=== PATIENT | female | born 1935 | race Hispanic/Latino ===

== ENCOUNTER → 2017-10-14 | Outpatient (CLI) | payer OTHER ==
[~2017-10-14] MED LIST: ACET-2247 PO; ALEN70TA47 PO; ASPI-1005 PO; CARB-38 PO; CLOP75TA32 PO; ENAL10TA PO; ENAL20TA PO; FURO20TA6 PO; GLIP1TAB6 PO; METO25 PO; NITR100C4 PO; OXYB5TAB PO; SIMV20TA6 PO
== END | disposition home or self-care (01) ==
LOC: SHCH 08:51
PROVIDERS: ATTEND Internal Medicine Cardiovascular Disease
DX: I08.0 Rheumatic disorders of both mitral and aortic valves (principal)
CPT/HCPCS: 93306

== ENCOUNTER 2017-11-03 05:37 | Inpatient (IN) | payer OTHER ==
[2017-10-30 09:52] VITALS: BP 137/62
[2017-10-30 10:00] LABS: BASOPHILS % (AUTO) 0.6 % (0.0-5.0); EOSINOPHILS % (AUTO) 2.2 % (0.0-8.0); HEMATOCRIT 33.2 % (36-48); LYMPHOCYTES % (AUTO) 30.7 % (21.0-51.0); MEAN CORPUSCULAR VOLUME 91.6 fL (79-99); MONOCYTES % (AUTO) 6.6 % (3.0-13.0); NEUTROPHILS % (AUTO) 59.9 % (40.0-77.0); PLATELET COUNT (AUTO) 235 K/uL (130-400); RED BLOOD CELL COUNT(AUTO) 3.62 MIL/uL (4.00-5.50); RED CELL DISTRIBUTION WIDTH 13.4 % (11.0-15.5); WHITE BLOOD COUNT (AUTO) 5.8 K/uL (4.8-10.8)
[2017-10-30 10:06] LABS: CREATININE 0.6 mg/dL (0.5-1.5); POTASSIUM 4.4 mmol/L (3.5-5.1)
[2017-10-30 10:20] LABS: PARTIAL THROMBOPLASTIN TIME 26.1 SEC (26.3-35.5); PROTHROMBIN TIME 10.5 SEC (9.6-11.6)
[2017-10-30 10:48] LABS: APPEARANCE,URINE Clear (CLEAR); BILIRUBIN,URINE Negative (NEGATIVE); COLOR,URINE Yellow (YELLOW); GLUCOSE, URINE (UA) Negative (NEGATIVE); KETONES,URINE Negative (NEGATIVE); LEUKOCYTE ESTERASE ,URINE Trace (NEGATIVE); NITRATE,URINE Negative (NEGATIVE); OCCULT BLOOD,URINE Negative (NEGATIVE); PH,URINE 7.5 (5.0-8.0); PROTEIN,URINE Negative (NEGATIVE); UROBILINOGEN,URINE 0.2 mg/dL (0.2-1.0)
[2017-10-30 11:11] LABS: BACTERIA,URINE Rare /HPF (None Seen); RBC,URINE 0-1 /HPF (0-1); SQUAMOUS EPITHELIAL CELL,UR 0-2 /LPF (0-2); WBC,URINE 0-1 /HPF (0-1)
[~2017-11-03] VITALS: Ht 154.9 cm; Wt 56.7 kg
[2017-11-03] VITALS (15 sets, daily range): BP systolic 133–165; BP diastolic 45–84
[~2017-11-03 05:37] MED LIST changes: -ACET-2247 PO; -ASPI-1005 PO; -ENAL10TA PO; -FURO20TA6 PO; -METO25 PO; -NITR100C4 PO
[2017-11-03] MEDS ORDERED: ISOVUE-370 50ML VIAL IV ONE (07:09)
[2017-11-03] MEDS ORDERED: NITROGLYCERIN 5 MG/ML 10 ML VIAL IV ONE (07:09)
[2017-11-03] MEDS ORDERED: IOPAMIDOL-370 100 ML VIAL IV ONE (07:09)
[2017-11-03] MEDS ORDERED: LIDOCAINE HCL 2% 20ML ONE (07:09)
[2017-11-03] MEDS ORDERED: DEXTROSE 50%-WATER 50 ML DISP.SYRIN IV PRN (09:00)
[2017-11-03] MEDS ORDERED: GLUCAGON 1MG KIT 1 MG ML IM PRN (09:00)
[2017-11-03] MEDS: INSULIN HUMULIN R 100 UNIT/ML 3ML SQ SCH ×3 (11:30→21:00)
[2017-11-03] MEDS ORDERED: MANNITOL 25% 50ML VIAL IV ONE (12:00)
[2017-11-03] MEDS ORDERED: HEPARIN SODIUM 1000UNIT/ML 10ML VIAL IV ONE (12:00)
[2017-11-03] MEDS ORDERED: CALCIUM CHLORIDE 100 MG/ML 10 ML SYG IVP ONE (12:00)
[2017-11-03] MEDS ORDERED: ALBUMIN (HUMAN) 25% 50 ML IV ONE (12:00)
[2017-11-03] MEDS ORDERED: AMINOCAPROIC ACID 250 MG/ML 20 ML VIAL IV ONE (12:00)
[2017-11-03] MEDS ORDERED: SODIUM BICARB 8.4% 50ML SYRINGE IVP ONE (12:00)
[2017-11-03 13:27] LABS: HEMATOCRIT 34.7 % (36-48); MEAN CORPUSCULAR HEMOGLOBIN 31.9 pg (27.0-33.0); MEAN CORPUSCULAR HGB CONC 35.1 g/dL (32.0-36.0); MEAN CORPUSCULAR VOLUME 90.8 fL (79-99); PLATELET COUNT (AUTO) 230 K/uL (130-400); RED BLOOD CELL COUNT(AUTO) 3.83 MIL/uL (4.00-5.50); RED CELL DISTRIBUTION WIDTH 13.2 % (11.0-15.5); WHITE BLOOD COUNT (AUTO) 7.3 K/uL (4.8-10.8)
[2017-11-03 13:36] LABS: HEMOGLOBIN A1C 5.8 % (4.0-6.0)
[2017-11-03] MEDS ORDERED: SODIUM CHLORIDE 0.9% 1000ML 1,000 ML IV ONE (13:37)
[2017-11-03 13:42] LABS: ALBUMIN 3.9 g/dL (3.5-5.0); BILIRUBIN,TOTAL 0.6 mg/dL (0.2-1.0); CREATININE 0.6 mg/dL (0.5-1.5); POTASSIUM 3.8 mmol/L (3.5-5.1); TOTAL PROTEIN, SERUM 7.4 g/dL (6.0-8.3)
[2017-11-03 13:47] LABS: PARTIAL THROMBOPLASTIN TIME 26.6 SEC (26.3-35.5); PROTHROMBIN TIME 10.5 SEC (9.6-11.6)
[2017-11-03] MEDS ORDERED: LIDOCAINE HCL-MPF 1% 2ML VIAL IVP PRN (21:45)
[2017-11-03] MEDS ORDERED: POTASSIUM CHLORIDE 20 MEQ ERTAB PO PRN (21:45)
[2017-11-03] MEDS ORDERED: POTASSIUM CHLORIDE 20MEQ/100ML 100 ML IV PRN (21:45)
[2017-11-03] MEDS ORDERED: POTASSIUM CHLORIDE 10% ELIXIR 20 MEQ/15 ML UDCUP PO PRN (21:45)
[2017-11-04 03:38] VITALS: BP_SYST 133; BP_SYST 140; BP_DIAS 47; BP_DIAS 72
[2017-11-04 04:26] LABS: HEMATOCRIT 33.4 % (36-48); MEAN CORPUSCULAR VOLUME 91.3 fL (79-99); PLATELET COUNT (AUTO) 216 K/uL (130-400); RED BLOOD CELL COUNT(AUTO) 3.66 MIL/uL (4.00-5.50); RED CELL DISTRIBUTION WIDTH 13.4 % (11.0-15.5); WHITE BLOOD COUNT (AUTO) 5.8 K/uL (4.8-10.8)
[2017-11-04 04:34] LABS: CREATININE 0.6 mg/dL (0.5-1.5); POTASSIUM 3.8 mmol/L (3.5-5.1)
[2017-11-04] MEDS ORDERED: CEFUROXIME SODIUM 1.5 GM VIAL IVP SCH (06:00)
[2017-11-04] MEDS ORDERED: CEFUROXIME 1.5GM+NS 100ML 100 ML IV SCH (06:00)
[2017-11-04] MEDS: INSULIN HUMULIN R 100 UNIT/ML 3ML SQ SCH ×4 (06:21→20:57)
[2017-11-04 07:33] VITALS: BP 145/59
[2017-11-04 11:13] VITALS: BP 146/58
[2017-11-04] MEDS ORDERED: ENALAPRIL MALEATE 10 MG TABLET PO SCH ×2 (12:00→21:00)
[2017-11-04] MEDS ORDERED: OXYBUTYNIN CHLORIDE 5 MG TABLET PO SCH (12:00)
[2017-11-04] MEDS: CARBIDOPA-LEVODOPA 25-100 TAB PO SCH ×2 (12:35→20:56)
[2017-11-04 16:10] VITALS: BP 164/69
[2017-11-04 17:06] VITALS: BP 159/67
[2017-11-04 19:58] VITALS: BP 141/54
[2017-11-04] MEDS ORDERED: ATORVASTATIN CALCIUM 10 MG TABLET PO SCH (21:00)
[2017-11-05] VITALS (43 sets, daily range): BP systolic 83–174; BP diastolic 31–70
[2017-11-05] MEDS: INSULIN HUMULIN R 100 UNIT/ML 3ML SQ SCH (05:58)
[2017-11-05] MEDS ORDERED: CEFUROXIME 1.5GM+NS 100ML 100 ML IV ONE (06:00)
[2017-11-05] MEDS ORDERED: WATER FOR INJECTION,STERILE 20 ML VIAL IJ SCH (06:00)
[2017-11-05] MEDS: CARBIDOPA-LEVODOPA 25-100 TAB PO SCH (08:00)
[2017-11-05] MEDS ORDERED: ENALAPRIL MALEATE 10 MG TABLET PO SCH (09:00)
[2017-11-05] MEDS ORDERED: OXYBUTYNIN 5 MG TAB.SR.24H PO SCH (09:00)
[2017-11-05] MEDS ORDERED: NITROGLYCERIN 50 MG/D5% WATER 1 BOT ONE (10:50)
[2017-11-05] MEDS ORDERED: AMINOCAPROIC ACID 250 MG/ML 20 ML VIAL IV ONE ×2 (10:50→11:43)
[2017-11-05] MEDS ORDERED: SODIUM CHLORIDE 0.9% 1000ML 1,000 ML IV ONE (10:58)
[2017-11-05] MEDS: CEFUROXIME SODIUM 1.5 GM VIAL IVP SCH ×3 (11:00→22:08)
[2017-11-05] MEDS ORDERED: DELNIDO FORMULA 2 BAG IV ONE (11:40)
[2017-11-05] MEDS ORDERED: MILRINONE-D5W 20 MG/100 ML 100 ML IV ONE (11:43)
[2017-11-05] MEDS ORDERED: EPINEPHRINE 1 MG/ML AMPULE ONE (11:43)
[2017-11-05] MEDS ORDERED: PROPOFOL 10 MG/ML 20ML VIAL IV ONE (11:43)
[2017-11-05] MEDS ORDERED: ESMOLOL HCL 10 MG/ML 10 ML VIAL ONE ×2 (11:43→14:36)
[2017-11-05] MEDS ORDERED: GLYCOPYRROLATE 0.2 MG/ML 5 ML VIAL ONE (11:43)
[2017-11-05] MEDS ORDERED: LIDOCAINE PF 2% 5ML ABBOJECT ONE (11:43)
[2017-11-05] MEDS ORDERED: AMIODARONE HCL 900MG/18ML IV ONE (11:43)
[2017-11-05] MEDS ORDERED: HEPARIN SODIUM 1000UNIT/ML 10ML VIAL ONE (11:43)
[2017-11-05] MEDS ORDERED: NOREPINEPHRINE BITARTRATE 1 MG/1 ML ML IV ONE ×2 (11:43→11:53)
[2017-11-05] MEDS ORDERED: KETAMINE 50MG/ML SYRINGE 50 MG/ML DISP.SYRIN IV ONE (11:43)
[2017-11-05] MEDS ORDERED: ROCURONIUM BROMIDE 10MG/1ML 5ML VL ONE ×3 (11:43→14:36)
[2017-11-05] MEDS ORDERED: PROTAMINE SULFATE 10 MG/ML 25ML VIAL IV ONE ×2 (11:43→14:36)
[2017-11-05] MEDS ORDERED: MIDAZOLAM HCL 1 MG/ML 5ML VIAL ONE (11:43)
[2017-11-05] MEDS ORDERED: FENTANYL CITRATE PF 50 MCG/1 ML 20ML VIAL IJ ONE (11:47)
[2017-11-05] MEDS ORDERED: METHYLPREDNISOLONE SOD SUCC 1,000 MG/8 ML ML IV ONE ×2 (11:52→13:42)
[2017-11-05] MEDS ORDERED: THROMBIN-JMI 5000 UNIT/VIAL TP ONE (12:05)
[2017-11-05 12:33] LABS: ABG BASE EXCESS -2.9 mmol/L (-2.0-3.0); ABG HCO3 21.1 mmol/L (21.0-28.0); ABG OXYGEN SATURATION 99.6 % (95.0-99.0); ABG PCO2 34 mmHg (32-45)
[2017-11-05] MEDS ORDERED: OCTYL 2-CYANOACRYLATE 1 EACH TP ONE (12:56)
[2017-11-05] MEDS ORDERED: BACITRACIN 50,000 UNIT VIAL ONE (12:56)
[2017-11-05] MEDS: AMBU PUMP 1 EACH EACH MISC SCH ×2 (13:30→15:13)
[2017-11-05 13:35] LABS: ABG BASE EXCESS -6.2 mmol/L (-2.0-3.0); ABG HCO3 18.5 mmol/L (21.0-28.0); ABG PCO2 34 mmHg (32-45)
[2017-11-05] MEDS ORDERED: SODIUM CHLORIDE 0.9% 500ML 500 ML IV SCH (13:58)
[2017-11-05] MEDS ORDERED: CALCIUM GLUCONATE 1 GM in SODIUM CHLORIDE 0.9% 50 ML IV PRN (14:00)
[2017-11-05] MEDS ORDERED: SODIUM CHLORIDE 0.9% 1000ML 1,000 ML IV SCH (14:00)
[2017-11-05] MEDS ORDERED: HYDROCODONE/ACETAMINOPHEN 5/325 MG TAB PO PRN ×2 (14:00)
[2017-11-05] MEDS ORDERED: AMINOCAPROIC ACID 15,000 MG in SODIUM CHLORIDE 0.9% 250 ML IV SCH (14:00)
[2017-11-05] MEDS ORDERED: ACETAMINOPHEN 650 MG SUPPOSITORY RC PRN (14:00)
[2017-11-05] MEDS ORDERED: ALBUMIN (HUMAN) 5% 250 ML IV PRN (14:00)
[2017-11-05] MEDS ORDERED: GLUCAGON 1MG KIT 1 MG ML IM PRN (14:00)
[2017-11-05] MEDS ORDERED: ROPIVACAINE 0.2% 2MG/ML 100ML VIAL IJ ONE (14:00)
[2017-11-05] MEDS ORDERED: MORPHINE SULFATE 4 MG/1ML SYG IV PRN (14:00)
[2017-11-05] MEDS ORDERED: SODIUM BICARB 8.4% 50ML SYRINGE IV PRN (14:00)
[2017-11-05] MEDS ORDERED: POTASSIUM PHOS 15 mMOL+NS250ML 250 ML IV PRN (14:00)
[2017-11-05] MEDS ORDERED: DEXTROSE 50%-WATER 50 ML DISP.SYRIN IV PRN (14:00)
[2017-11-05] MEDS ORDERED: SODIUM CHLORIDE 0.9% 250 ML IV PRN (14:00)
[2017-11-05] MEDS ORDERED: SODIUM CHLORIDE 0.9% 10 ML VIAL IVP PRN (14:00)
[2017-11-05] MEDS ORDERED: MORPHINE SULFATE 2 MG/ML 1ML SYG IV PRN (14:00)
[2017-11-05] MEDS ORDERED: NOREPINEPHRINE 4MG/NS 250ML 250 ML IV PRN (14:00)
[2017-11-05] MEDS ORDERED: NICARDIPINE HCL 100 MG in SODIUM CHLORIDE 0.9% 100 ML IV PRN (14:00)
[2017-11-05] MEDS ORDERED: ONDANSETRON HCL 4 MG/2 ML VIAL IV PRN (14:00)
[2017-11-05] MEDS ORDERED: INSULIN REGULAR, HUMAN 3ML 100 UNIT in SODIUM CHLORIDE 0.9% 99 ML IV SCH ×2 (14:00)
[2017-11-05] MEDS ORDERED: EPINEPHRINE 2 MG in SODIUM CHLORIDE 0.9% 250 ML IV PRN (14:00)
[2017-11-05] MEDS ORDERED: PROPOFOL 1000 MG/100 ML 100 ML IV PRN (14:00)
[2017-11-05 14:25] LABS: ABG BASE EXCESS 0.5 mmol/L (-2.0-3.0); ABG HCO3 24.4 mmol/L (21.0-28.0); ABG OXYGEN SATURATION 98.8 % (95.0-99.0); ABG PCO2 36 mmHg (32-45)
[2017-11-05] MEDS ORDERED: SODIUM BICARB 50MEQ 50ML VIAL ONE (14:34)
[2017-11-05] MEDS ORDERED: LABETALOL 20 MG/4 ML DISP.SYRIN IV ONE (14:34)
[2017-11-05] MEDS: NITROGLYCERIN 50 MG/D5% WATER 250 BOT IV SCH (15:30)
[2017-11-05 15:44] LABS: ABG BASE EXCESS 2.1 mmol/L (-2.0-3.0); ABG HCO3 25.5 mmol/L (21.0-28.0); ABG OXYGEN SATURATION 96.4 % (95.0-99.0); ABG PCO2 35 mmHg (32-45)
[2017-11-05 15:53] LABS: HEMATOCRIT 30.5 % (36-48); MEAN CORPUSCULAR HEMOGLOBIN 30.6 pg (27.0-33.0); MEAN CORPUSCULAR HGB CONC 33.9 g/dL (32.0-36.0); MEAN CORPUSCULAR VOLUME 90.3 fL (79-99); PLATELET COUNT (AUTO) 66 K/uL (130-400); RED BLOOD CELL COUNT(AUTO) 3.37 MIL/uL (4.00-5.50); RED CELL DISTRIBUTION WIDTH 13.1 % (11.0-15.5); WHITE BLOOD COUNT (AUTO) 12.2 K/uL (4.8-10.8)
[2017-11-05 16:06] LABS: CREATININE 0.6 mg/dL (0.5-1.5); MAGNESIUM 2.2 mg/dL (1.80-2.40); POTASSIUM 4.1 mmol/L (3.5-5.1)
[2017-11-05 16:29] LABS: PLATELET MORPHOLOGY COMMENT DECREASED
[2017-11-05] MEDS ORDERED: CEFUROXIME 1.5GM+NS 100ML 100 ML IV SCH (22:00)
[2017-11-05] MEDS: WATER FOR INJECTION,STERILE 20 ML VIAL IJ SCH (22:08)
[2017-11-06] VITALS (24 sets, daily range): BP systolic 108–183; BP diastolic 37–73
[2017-11-06 01:01] LABS: ABG BASE EXCESS -0.2 mmol/L (-2.0-3.0); ABG HCO3 24.2 mmol/L (21.0-28.0); ABG PCO2 39 mmHg (32-45)
[2017-11-06 03:10] LABS: ABG BASE EXCESS 1.4 mmol/L (-2.0-3.0); ABG HCO3 26.1 mmol/L (21.0-28.0); ABG OXYGEN SATURATION 97.1 % (95.0-99.0); ABG PCO2 42 mmHg (32-45)
[2017-11-06 04:15] LABS: HEMATOCRIT 30.4 % (36-48); MEAN CORPUSCULAR HEMOGLOBIN 32.2 pg (27.0-33.0); MEAN CORPUSCULAR HGB CONC 35.4 g/dL (32.0-36.0); RED BLOOD CELL COUNT(AUTO) 3.34 MIL/uL (4.00-5.50); RED CELL DISTRIBUTION WIDTH 13.4 % (11.0-15.5); WHITE BLOOD COUNT (AUTO) 11.8 K/uL (4.8-10.8)
[2017-11-06 04:25] LABS: CREATININE 0.7 mg/dL (0.5-1.5); MAGNESIUM 1.8 mg/dL (1.80-2.40); PHOSPHORUS 4.4 mg/dL (2.5-4.9); POTASSIUM 4.1 mmol/L (3.5-5.1)
[2017-11-06] MEDS: MAGNESIUM 2GM PREMIX 50ML 50 ML IV PRN (04:48)
[2017-11-06 05:29] LABS: PLATELET COUNT (AUTO) 72 K/uL (130-400)
[2017-11-06] MEDS: ASPIRIN 81MG TAB.CHEW PO SCH (09:06)
[2017-11-06] MEDS: CEFUROXIME SODIUM 1.5 GM VIAL IVP SCH ×2 (09:06→21:06)
[2017-11-06] MEDS: PANTOPRAZOLE SODIUM 40 MG TABLET.DR PO SCH (09:06)
[2017-11-06] MEDS: WATER FOR INJECTION,STERILE 20 ML VIAL IJ SCH (09:06)
[2017-11-06] MEDS: CARBIDOPA-LEVODOPA 25-100 TAB PO SCH ×2 (10:04→21:06)
[2017-11-06] MEDS: ENALAPRIL MALEATE 10 MG TABLET PO SCH (10:05)
[2017-11-06] MEDS: AMBU PUMP 1 EACH EACH MISC SCH (13:06)
[2017-11-06] MEDS: NITROGLYCERIN 50 MG/D5% WATER 250 BOT IV SCH (15:58)
[2017-11-06] MEDS: FUROSEMIDE 20 MG TABLET PO SCH (19:03)
[2017-11-06] MEDS: ATORVASTATIN CALCIUM 40 MG TABLET PO SCH (21:07)
[2017-11-07] VITALS (13 sets, daily range): BP systolic 121–177; BP diastolic 34–73
[2017-11-07 05:16] LABS: LYMPHOCYTES % (AUTO) 3.4 % (21.0-51.0); MEAN CORPUSCULAR HEMOGLOBIN 30.6 pg (27.0-33.0); MEAN CORPUSCULAR HGB CONC 33.7 g/dL (32.0-36.0); MEAN CORPUSCULAR VOLUME 90.7 fL (79-99); MONOCYTES % (AUTO) 5.3 % (3.0-13.0); NEUTROPHILS % (AUTO) 91.3 % (40.0-77.0); PLATELET COUNT (AUTO) 55 K/uL (130-400); RED BLOOD CELL COUNT(AUTO) 2.75 MIL/uL (4.00-5.50); RED CELL DISTRIBUTION WIDTH 13.1 % (11.0-15.5); WHITE BLOOD COUNT (AUTO) 20.6 K/uL (4.8-10.8)
[2017-11-07 08:50] LABS: CREATININE 0.7 mg/dL (0.5-1.5); POTASSIUM 3.2 mmol/L (3.5-5.1)
[2017-11-07] MEDS: CARBIDOPA-LEVODOPA 25-100 TAB PO SCH ×2 (09:00→20:57)
[2017-11-07] MEDS: ASPIRIN 81MG TAB.CHEW PO SCH (10:04)
[2017-11-07] MEDS: ENALAPRIL MALEATE 10 MG TABLET PO SCH (10:05)
[2017-11-07] MEDS: PANTOPRAZOLE SODIUM 40 MG TABLET.DR PO SCH (10:05)
[2017-11-07] MEDS: FUROSEMIDE 20 MG TABLET PO SCH ×2 (10:05→17:24)
[2017-11-07] MEDS: POTASSIUM CHLORIDE 20MEQ/100ML 100 ML IV PRN ×2 (10:12→17:30)
[2017-11-07] MEDS: AMBU PUMP 1 EACH EACH MISC SCH (13:30)
[2017-11-07] MEDS: ATORVASTATIN CALCIUM 40 MG TABLET PO SCH (20:57)
[2017-11-08] VITALS (8 sets, daily range): BP systolic 139–177; BP diastolic 47–96
[2017-11-08 03:33] LABS: HEMATOCRIT 26.7 % (36-48); MEAN CORPUSCULAR HEMOGLOBIN 31.8 pg (27.0-33.0); MEAN CORPUSCULAR HGB CONC 35.1 g/dL (32.0-36.0); MEAN CORPUSCULAR VOLUME 90.5 fL (79-99); PLATELET COUNT (AUTO) 56 K/uL (130-400); RED BLOOD CELL COUNT(AUTO) 2.95 MIL/uL (4.00-5.50); RED CELL DISTRIBUTION WIDTH 12.9 % (11.0-15.5); WHITE BLOOD COUNT (AUTO) 16.9 K/uL (4.8-10.8)
[2017-11-08 03:43] LABS: CREATININE 0.5 mg/dL (0.5-1.5); POTASSIUM 3.8 mmol/L (3.5-5.1)
[2017-11-08] MEDS: ASPIRIN 81MG TAB.CHEW PO SCH (10:28)
[2017-11-08] MEDS: PANTOPRAZOLE SODIUM 40 MG TABLET.DR PO SCH (10:28)
[2017-11-08] MEDS: CARBIDOPA-LEVODOPA 25-100 TAB PO SCH ×2 (10:28→20:38)
[2017-11-08] MEDS: FUROSEMIDE 20 MG TABLET PO SCH ×2 (10:28→17:07)
[2017-11-08] MEDS: ENALAPRIL MALEATE 10 MG TABLET PO SCH (10:29)
[2017-11-08] MEDS: AMBU PUMP 1 EACH EACH MISC SCH (12:13)
[2017-11-08] MEDS: ACETAMINOPHEN 325 MG TAB PO PRN (14:01)
[2017-11-08] MEDS: ATORVASTATIN CALCIUM 40 MG TABLET PO SCH (20:39)
[2017-11-09 03:44] VITALS: BP 150/63
[2017-11-09 04:13] LABS: MEAN CORPUSCULAR HEMOGLOBIN 30.5 pg (27.0-33.0); MEAN CORPUSCULAR HGB CONC 33.7 g/dL (32.0-36.0); MEAN CORPUSCULAR VOLUME 90.4 fL (79-99); PLATELET COUNT (AUTO) 73 K/uL (130-400); RED BLOOD CELL COUNT(AUTO) 3.21 MIL/uL (4.00-5.50); RED CELL DISTRIBUTION WIDTH 13.1 % (11.0-15.5); WHITE BLOOD COUNT (AUTO) 12.1 K/uL (4.8-10.8)
[2017-11-09] MEDS ORDERED: ALENDRONATE SODIUM 35 MG TAB PO SCH (06:30)
[2017-11-09 07:00] VITALS: BP 123/55
[2017-11-09] MEDS ORDERED: AMIODARONE HCL 150 MG in DEXTROSE 5%-WATER 100 ML IV SCH ×4 (07:15)
[2017-11-09] MEDS ORDERED: AMIODARONE HCL 900 MG in DEXTROSE 5%-WATER 500 ML IV SCH (07:15)
[2017-11-09] MEDS: AMIODARONE HCL 900 MG in DEXTROSE 5%-WATER 500 ML IV SCH ×2 (07:46→13:37)
[2017-11-09] MEDS: ASPIRIN 81MG TAB.CHEW PO SCH (08:36)
[2017-11-09] MEDS: PANTOPRAZOLE SODIUM 40 MG TABLET.DR PO SCH (08:36)
[2017-11-09] MEDS: ENALAPRIL MALEATE 10 MG TABLET PO SCH (08:36)
[2017-11-09] MEDS: CARBIDOPA-LEVODOPA 25-100 TAB PO SCH ×2 (08:36→21:06)
[2017-11-09] MEDS: FUROSEMIDE 20 MG TABLET PO SCH ×2 (10:01→16:30)
[2017-11-09 11:00] VITALS: BP 112/57
[2017-11-09] MEDS: AMBU PUMP 1 EACH EACH MISC SCH (13:30)
[2017-11-09 16:00] VITALS: BP 124/64
[2017-11-09 17:24] LABS: CREATININE 0.5 mg/dL (0.5-1.5); MAGNESIUM 1.8 mg/dL (1.80-2.40); PHOSPHORUS 1.5 mg/dL (2.5-4.9); POTASSIUM 3.7 mmol/L (3.5-5.1)
[2017-11-09 19:34] VITALS: BP 142/58
[2017-11-09] MEDS: MAGNESIUM 2GM PREMIX 50ML 50 ML IV PRN (21:06)
[2017-11-09] MEDS: ATORVASTATIN CALCIUM 40 MG TABLET PO SCH (21:06)
[2017-11-09 23:15] VITALS: BP 140/64
[2017-11-10 03:50] VITALS: BP 134/80
[2017-11-10] MEDS ORDERED: DOBUTAMINE HCL 250 MG in SODIUM CHLORIDE 0.9% 250 ML IV PRN (04:00)
[2017-11-10 04:32] LABS: CREATININE 0.5 mg/dL (0.5-1.5); MAGNESIUM 2.3 mg/dL (1.80-2.40)
[2017-11-10 07:00] VITALS: BP 109/66
[2017-11-10] MEDS: METOPROLOL TARTRATE 25 MG TAB PO SCH ×2 (08:53→21:08)
[2017-11-10] MEDS: ENALAPRIL MALEATE 10 MG TABLET PO SCH (08:54)
[2017-11-10] MEDS: PANTOPRAZOLE SODIUM 40 MG TABLET.DR PO SCH (08:54)
[2017-11-10] MEDS: ASPIRIN 81MG TAB.CHEW PO SCH (08:54)
[2017-11-10] MEDS: FUROSEMIDE 20 MG TABLET PO SCH ×2 (08:54→16:32)
[2017-11-10] MEDS: CARBIDOPA-LEVODOPA 25-100 TAB PO SCH ×2 (08:54→21:08)
[2017-11-10] MEDS ORDERED: AMIODARONE HCL 200 MG TABLET PO SCH (09:00)
[2017-11-10 11:00] VITALS: BP 116/62
[2017-11-10] MEDS: AMBU PUMP 1 EACH EACH MISC SCH (12:36)
[2017-11-10 16:00] VITALS: BP 126/73
[2017-11-10 19:43] VITALS: BP 133/81
[2017-11-10] MEDS: ATORVASTATIN CALCIUM 40 MG TABLET PO SCH (21:08)
[2017-11-10] MEDS: BISACODYL 5 MG TABLET.DR PO SCH (21:08)
[2017-11-10 23:24] VITALS: BP 110/69
[2017-11-11] VITALS (7 sets, daily range): BP systolic 99–147; BP diastolic 55–72
[2017-11-11] MEDS: ACETAMINOPHEN 325 MG TAB PO PRN (00:04)
[2017-11-11 05:47] LABS: CREATININE 0.6 mg/dL (0.5-1.5); MAGNESIUM 1.9 mg/dL (1.80-2.40); PHOSPHORUS 2.3 mg/dL (2.5-4.9); POTASSIUM 3.9 mmol/L (3.5-5.1)
[2017-11-11] MEDS: BISACODYL 5 MG TABLET.DR PO SCH ×3 (09:00→20:42)
[2017-11-11] MEDS: ENALAPRIL MALEATE 10 MG TABLET PO SCH (10:27)
[2017-11-11] MEDS: CARBIDOPA-LEVODOPA 25-100 TAB PO SCH ×2 (10:27→20:43)
[2017-11-11] MEDS: FUROSEMIDE 20 MG TABLET PO SCH ×2 (10:27→17:02)
[2017-11-11] MEDS: PANTOPRAZOLE SODIUM 40 MG TABLET.DR PO SCH (10:27)
[2017-11-11] MEDS: AMIODARONE HCL 200 MG TABLET PO SCH ×2 (10:27→20:43)
[2017-11-11] MEDS: ASPIRIN 81MG TAB.CHEW PO SCH (10:32)
[2017-11-11] MEDS: METOPROLOL TARTRATE 25 MG TAB PO SCH ×2 (10:32→20:43)
[2017-11-11] MEDS: AMBU PUMP 1 EACH EACH MISC SCH (12:07)
[2017-11-11] MEDS ORDERED: AMIODARONE HCL 150 MG in DEXTROSE 5%-WATER 100 ML IV SCH (13:24)
[2017-11-11] MEDS ORDERED: LIDOCAINE HCL-MPF 1% 2ML VIAL IVP PRN (14:45)
[2017-11-11] MEDS ORDERED: POTASSIUM CHLORIDE 20MEQ/100ML 100 ML IV PRN (14:45)
[2017-11-11] MEDS ORDERED: POTASSIUM CHLORIDE 10% ELIXIR 20 MEQ/15 ML UDCUP PO PRN (14:45)
[2017-11-11] MEDS ORDERED: POTASSIUM CHLORIDE 20 MEQ ERTAB PO PRN (14:45)
[2017-11-11] MEDS: ATORVASTATIN CALCIUM 40 MG TABLET PO SCH (20:42)
[2017-11-12] MEDS: ACETAMINOPHEN 325 MG TAB PO PRN (00:16)
[2017-11-12 03:56] VITALS: BP 126/53
[2017-11-12 04:43] LABS: HEMATOCRIT 28.7 % (36-48)
[2017-11-12 05:00] LABS: CREATININE 0.6 mg/dL (0.5-1.5); MAGNESIUM 1.6 mg/dL (1.80-2.40); PHOSPHORUS 2.8 mg/dL (2.5-4.9)
[2017-11-12] MEDS: MAGNESIUM 2GM PREMIX 50ML 50 ML IV PRN (06:15)
[2017-11-12 08:00] VITALS: BP 139/48
[2017-11-12] MEDS: CARBIDOPA-LEVODOPA 25-100 TAB PO SCH ×2 (08:22→21:09)
[2017-11-12] MEDS: BISACODYL 5 MG TABLET.DR PO SCH ×2 (08:23→21:08)
[2017-11-12] MEDS: FUROSEMIDE 20 MG TABLET PO SCH ×2 (08:23→18:15)
[2017-11-12] MEDS: ENALAPRIL MALEATE 10 MG TABLET PO SCH (08:23)
[2017-11-12] MEDS: AMIODARONE HCL 200 MG TABLET PO SCH ×2 (08:23→21:09)
[2017-11-12] MEDS: ASPIRIN 81MG TAB.CHEW PO SCH (08:23)
[2017-11-12] MEDS: PANTOPRAZOLE SODIUM 40 MG TABLET.DR PO SCH (08:23)
[2017-11-12] MEDS: METOPROLOL TARTRATE 25 MG TAB PO SCH ×2 (08:23→21:09)
[2017-11-12 12:00] VITALS: BP 128/51
[2017-11-12] MEDS: AMBU PUMP 1 EACH EACH MISC SCH (13:30)
[2017-11-12 16:00] VITALS: BP 143/61
[2017-11-12 19:00] VITALS: BP 149/55
[2017-11-12] MEDS: ATORVASTATIN CALCIUM 40 MG TABLET PO SCH (21:08)
[2017-11-12 23:00] VITALS: BP 138/52
[2017-11-13 03:00] VITALS: BP 147/57
[2017-11-13] MEDS: ACETAMINOPHEN 325 MG TAB PO PRN (03:18)
[2017-11-13 08:01] VITALS: BP 147/60
[2017-11-13] MEDS: CARBIDOPA-LEVODOPA 25-100 TAB PO SCH (08:13)
[2017-11-13] MEDS: AMIODARONE HCL 200 MG TABLET PO SCH (08:13)
[2017-11-13] MEDS: FUROSEMIDE 20 MG TABLET PO SCH (08:13)
[2017-11-13] MEDS: ENALAPRIL MALEATE 10 MG TABLET PO SCH (08:13)
[2017-11-13] MEDS: PANTOPRAZOLE SODIUM 40 MG TABLET.DR PO SCH (08:13)
[2017-11-13] MEDS: ASPIRIN 81MG TAB.CHEW PO SCH (08:13)
[2017-11-13] MEDS: METOPROLOL TARTRATE 25 MG TAB PO SCH (08:13)
[2017-11-13] MEDS: BISACODYL 5 MG TABLET.DR PO SCH (08:13)
[2017-11-13] MEDS ORDERED: ASPI-1005 PO (10:07)
[2017-11-13] MEDS ORDERED: FURO20TA6 PO (10:07)
[2017-11-13] MEDS ORDERED: METO25 PO (10:07)
[2017-11-13 11:49] VITALS: BP 142/57
== END 2017-11-13 14:50 | disposition home health service (06) | DRG 216 ==
LOC: DAH 05:37 → DAHIP 05:38 → DAH 05:38 → 2AH 14:06 → 2CV 11-05 11:46 → 2BH 11-06 06:17 → 2AH 11-08 06:07
PROVIDERS: ADMIT Internal Medicine; ATTEND Family Medicine
PROC: B2111ZZ Fluoroscopy of Multiple Coronary Arteries using Low Osmolar Contrast (ICD-10-PCS; principal; 2017-11-03)
PROC: 4A023N7 Measurement of Cardiac Sampling and Pressure, Left Heart, Percutaneous Approach (ICD-10-PCS; 2017-11-03)
PROC: 02RF08Z Replacement of Aortic Valve with Zooplastic Tissue, Open Approach (ICD-10-PCS; 2017-11-05)
DX: I35.0 Nonrheumatic aortic (valve) stenosis (principal); I50.33 Acute on chronic diastolic (congestive) heart failure; D69.6 Thrombocytopenia, unspecified; G20 Parkinson's disease; E11.9 Type 2 diabetes mellitus without complications; E78.5 Hyperlipidemia, unspecified; I10 Essential (primary) hypertension; I25.10 Atherosclerotic heart disease of native coronary artery without angina pectoris; I48.91 Unspecified atrial fibrillation; M81.0 Age-related osteoporosis without current pathological fracture; Z95.2 Presence of prosthetic heart valve; Z90.710 Acquired absence of both cervix and uterus; Z79.82 Long term (current) use of aspirin; Z79.899 Other long term (current) drug therapy; Z86.73 Personal history of transient ischemic attack (TIA), and cerebral infarction without residual deficits; Z82.49 Family history of ischemic heart disease and other diseases of the circulatory system
CPT/HCPCS: 36415; 36600; 71045; 76998; 80048; 80053; 80061; 81001; 82330; 82435; 82803; 82947; 82948; 83036; 83605; 83735; 83880; 84100; 84132; 84295; 85014; 85018; 85025; 85027; 85347; 85610; 85730; 86850; 86900; 86901; 86922; 87804; 88305; 88311; 93005; 93318; 93454; 93880; 94002; 94003; 94010; 94150; 97039; A4606; A7048; C1760; C1894; G0378; J0171; J0282; J0697; J1250; J1644; J1815; J2001; J2150; J2250; J2260; J2704; J2720; J2795; J2930; J3010; J3475; J3480; J3490; J7030; J7040; J7060; P9047; Q9967

== ENCOUNTER → 2018-01-04 | Outpatient (CLI) | payer OTHER ==
[~2018-01-04] MED LIST changes: +ASPI-1005 PO; -CLOP75TA32 PO; +FURO20TA6 PO; +METO25 PO
== END | disposition home or self-care (01) ==
LOC: SHCH 09:17
PROVIDERS: ATTEND Internal Medicine Cardiovascular Disease
DX: I11.0 Hypertensive heart disease with heart failure (principal); I34.0 Nonrheumatic mitral (valve) insufficiency; Z95.3 Presence of xenogenic heart valve
CPT/HCPCS: 93306

== ENCOUNTER → 2020-02-24 | Outpatient (CLI) | payer OTHER ==
[~2020-02-24] MED LIST changes: +ALEN70TA10 PO; -ALEN70TA47 PO; +OXYB-66 PO; -OXYB5TAB PO; +SIMV-43 PO; -SIMV20TA6 PO
[2020-02-24 09:48] LABS: BASOPHILS % (AUTO) 0.7 % (0.0-5.0); EOSINOPHILS % (AUTO) 2.6 % (0.0-8.0); HEMATOCRIT 34.9 % (36-48); LYMPHOCYTES % (AUTO) 25.7 % (21.0-51.0); MEAN CORPUSCULAR HEMOGLOBIN 29.7 pg (27.0-33.0); MEAN CORPUSCULAR HGB CONC 32.4 g/dL (32.0-36.0); MEAN CORPUSCULAR VOLUME 91.8 fL (79-99); MONOCYTES % (AUTO) 6.6 % (3.0-13.0); NEUTROPHILS % (AUTO) 64.2 % (40.0-77.0); PLATELET COUNT (AUTO) 202 K/uL (130-400); RED CELL DISTRIBUTION WIDTH 13.5 % (11.0-15.5); WHITE BLOOD COUNT (AUTO) 5.8 K/uL (4.8-10.8)
[2020-02-24 10:07] LABS: ALBUMIN 4.3 g/dL (3.5-5.0); BILIRUBIN,TOTAL 0.4 mg/dL (0.2-1.0); CREATININE 0.6 mg/dL (0.5-1.5); POTASSIUM 4.4 mmol/L (3.5-5.1); TOTAL PROTEIN, SERUM 7.7 g/dL (6.0-8.3)
== END | disposition home or self-care (01) ==
LOC: RAH 08:53
PROVIDERS: ATTEND Internal Medicine Gastroenterology
DX: R10.13 Epigastric pain (principal)
CPT/HCPCS: 36415; 76700; 80053; 82150; 83690; 85025

== ENCOUNTER 2020-08-15 19:33 | Emergency (ER) | payer OTHER ==
[~2020-08-15 19:33] MED LIST changes: -ALEN70TA10 PO; +ALEN70TA80 PO; -ENAL20TA PO; +ENAL20TA18 PO
[2020-08-15 20:03] LABS: BASOPHILS % (AUTO) 0.6 % (0.0-5.0); EOSINOPHILS % (AUTO) 2.4 % (0.0-8.0); HEMATOCRIT 35.5 % (36-48); LYMPHOCYTES % (AUTO) 19.7 % (21.0-51.0); MEAN CORPUSCULAR HEMOGLOBIN 29.8 pg (27.0-33.0); MEAN CORPUSCULAR HGB CONC 32.1 g/dL (32.0-36.0); MEAN CORPUSCULAR VOLUME 92.9 fL (79-99); MONOCYTES % (AUTO) 7.2 % (3.0-13.0); NEUTROPHILS % (AUTO) 69.7 % (40.0-77.0); PLATELET COUNT (AUTO) 198 K/uL (130-400); RED BLOOD CELL COUNT(AUTO) 3.82 MIL/uL (4.00-5.50); RED CELL DISTRIBUTION WIDTH 13.5 % (11.0-15.5); WHITE BLOOD COUNT (AUTO) 8.3 K/uL (4.8-10.8)
[2020-08-15 20:18] LABS: CREATININE 0.7 mg/dL (0.5-1.5); POTASSIUM 3.5 mmol/L (3.5-5.1)
[2020-08-15] MEDS ORDERED: TETANUS/DIPHTHERIA TOXOID [ADULT] 0.5 ML VIAL IM ONE (20:19)
[2020-08-15 20:23] LABS: INR 0.93 (0.85-1.15); PARTIAL THROMBOPLASTIN TIME 25.8 SEC (26.3-35.5); PROTHROMBIN TIME 10.1 SEC (9.6-11.6)
[2020-08-15] MEDS ORDERED: LIDOCAINE HCL 1% 20 ML VIAL ONE (20:55)
== END 2020-08-16 00:12 | disposition home or self-care (01) ==
LOC: EDH 19:33
DX: S01.01XA Laceration without foreign body of scalp, initial encounter (principal); G20 Parkinson's disease; E11.9 Type 2 diabetes mellitus without complications; I10 Essential (primary) hypertension; W18.39XA Other fall on same level, initial encounter; Y93.89 Activity, other specified; Y92.89 Other specified places as the place of occurrence of the external cause; Y99.8 Other external cause status
CPT/HCPCS: 12032; 36415; 70450; 80048; 85025; 85610; 85730; 90471; 90714; 93005

== ENCOUNTER → 2020-09-28 | Outpatient (CLI) | payer OTHER | END | disposition home or self-care (01) | LOC: RAH 10:58 | PROVIDERS: ATTEND Family Medicine | DX: R10.2 Pelvic and perineal pain (principal) | CPT/HCPCS: 72195 ==

== ENCOUNTER → 2021-05-02 | Outpatient (CLI) | payer OTHER | END | disposition home or self-care (01) | LOC: SHCH 14:23 | PROVIDERS: ATTEND Internal Medicine Cardiovascular Disease | DX: I08.0 Rheumatic disorders of both mitral and aortic valves (principal); I10 Essential (primary) hypertension; E78.5 Hyperlipidemia, unspecified; E11.9 Type 2 diabetes mellitus without complications; Z95.4 Presence of other heart-valve replacement | CPT/HCPCS: 93306; 93356 ==

== ENCOUNTER → 2023-01-27 | Outpatient (CLI) | payer OTHER ==
[~2023-01-27] MED LIST changes: +ENAL-91 PO; -ENAL20TA18 PO
== END | disposition home or self-care (01) ==
LOC: SHCH 11:51
PROVIDERS: ATTEND Internal Medicine Cardiovascular Disease
DX: I87.2 Venous insufficiency (chronic) (peripheral) (principal); I70.203 Unspecified atherosclerosis of native arteries of extremities, bilateral legs
CPT/HCPCS: 93925; 93970